=== PATIENT | female | born 1975 | race Caucasian/White ===

== ENCOUNTER → 2018-07-04 | Outpatient (CLI) | payer MEDICAID ==
--- NOTE | 2018-07-04 12:42 | US ---
EXAM DESCRIPTION: 3D Diagnostic, Bilateral (accession [id number]), Breast,Bilateral (accession [id number]): Ultrasound CLINICAL HISTORY: 42 yearsFemaleABN SCREEN, LUMPS COMPARISON: None. TECHNIQUE: Transcutaneous scanning of the bilateral breasts utilizing andersen-scale and Doppler modes. Scanning performed by the machine feeder floorperson and Dr. Turner. Bilateral CC, MLO, and LM projection full-field images, digital mammographic tomosynthesis technique. Bilateral 2-D digital full-field MLO images. CAD not available. FINDINGS: The breast parenchymal density pattern is: Heterogeneously dense breast tissue, which may obscure small masses. No skin thickening or nipple retraction bilateral scattered and focal regions of fibroglandular tissues. Partially circumscribed mass density at the 11:30 clock position of the middle third of the right breast approximately 6 cm from the nipple. Architectural distortion at the 12:00 position 8 to 9 cm from the nipple. Mass density versus focal asymmetry at the 11:30 clock position of the left breast posterior third occipital 18 cm from the nipple. No suspicious microcalcifications bilaterally. Ultrasound: Scanning the right breast, 11:00-1:00 position, 10 cm from the nipple. Mostly fibroglandular elements with minimal fatty echotexture. Circumscribed oval-shaped hypoechoic mass near the skin surface not vascular. Wider than tall with mixed posterior shadowing and posterior acoustic enhancement. Central echogenicity suggestive of a lymph node. At the 11:00 position, 7 cm from the lymph node is an elongated hypoechoic mass with circumscribed and angular margins and part of the margins are ill-defined. Mixed regions of echogenicity within the mass and a peripheral slightly hypoechoic capsule. No significant vascularity. Wider than tall orientation and posterior posterior shadowing. Dimensions are 3.3 x 1.8 cm, similar to the mammographic measurements. No associated large calcifications, parenchymal edema or cysts. No overlying skin changes. Scanning of the left breast 10 to 12:00 position, 10 cm from the nipple. Mostly fibroglandular elements with minimal fatty replacement. Anechoic oval-shaped mass with circumscribed thin margins, wider than tall orientation and posterior acoustic enhancement. Dimensions are 6.4 x 5.4 mm consistent with a cyst. No dominant solid mass. No parenchymal edema or large calcifications. No overlying skin changes. No abnormal vascularity. IMPRESSION: Abnormal ultrasound and mammographic findings in a 3.3 cm mass in the middle third of the upper right breast. ASSESSMENT: BI-RADS CATEGORY 4: SUSPICIOUS. SUB-CATEGORY 4A - LOW SUSPICION FOR MALIGNANCY. FOLLOW-UP: Surgical consultation and tissue diagnosis should be considered. The FINDINGS and FOLLOW-UP plan were reviewed in person with the patient following the examination. Written communication explaining the IMPRESSION and FOLLOW-UP will be mailed to the patient and referring care provider. CRITICAL COMMUNICATION: The critical value was discussed directly by phone with Dr. Micha Eng's biomedical electronics technician, Ms. Erin Zapata M.A., at approximately 1020 hours, on July 04, 2018. Electronically signed by: Donald Turner MD 07/04/2018 12:39 PM CDT
== END ==
LOC: MAMMO 09:00
PROVIDERS: ATTEND General Practice
DX: R92.8 Other abnormal and inconclusive findings on diagnostic imaging of breast (principal)
CPT/HCPCS: 76641; 77066; G0279

== ENCOUNTER → 2018-07-29 | Outpatient (CLI) | payer MEDICAID ==
--- NOTE | 2018-07-29 09:14 | OP ---
DATE OF PROCEDURE: 07/29/18 PREOPERATIVE DIAGNOSIS: 1. Abnormal right mammogram. POSTOPERATIVE DIAGNOSIS: 1. Abnormal right mammogram. PROCEDURE: 1. Sonographically guided needle core biopsy, right breast mass. SURGEON: Moiz Keen MD. BRAKE COUPLER DINKEY: None. ANESTHESIA: Local infiltration of 1% lidocaine. INDICATION: The patient is a 42-year-old female who found what she felt to be a discrete mass in her right breast. Workup revealed a solid lesion with shadowing. She was brought to the Ultrasound Suite today for sonographically guided needle core biopsy after the risks, benefits and alternatives to the procedure were discussed and accepted. FINDINGS: Multiple good cores were taken with ultrasound documentation of the biopsy within the mass. Pathology is pending. PROCEDURE: The patient was brought to the Radiology Suite and placed with the right shoulder and back under a wedge. The right breast was examined with the ultrasound probe. The lesion was identified. The breast medial to the ultrasound probe was prepped with Betadine and draped. Local infiltration of anesthesia was obtained with 1% lidocaine. The tissue between the lesion and the skin was infiltrated with local anesthesia. When this was done, a stab wound was then made with a 15 blade and the biopsy needle was directed and cores were taken of the mass under direct sonographic guidance. Hemostasis was obtained with pressure. A single 4-0 Nylon suture was placed in the skin. Sterile pressure dressing was applied. The patient tolerated the procedure well. Estimated blood loss was less than 5 mL. The specimens were sent for pathological evaluation. The patient was discharged home in stable condition. #[id number] MTDD
--- NOTE | 2018-07-29 14:18 | US ---
EXAM DESCRIPTION: Biopsy/Needle Guidance: Ultrasound. CLINICAL HISTORY: 42 years Female ABNORMAL MAMMOGRAM RIGHT COMPARISON: Diagnostic ultrasound of the bilateral breast on 07/04/2018 TECHNIQUE: The procedure was performed by Dr. Keen. Repeat ultrasound localized hypoechoic right breast mass at the 11:00 position of the right breast 7 cm from the nipple. Sterile preparation. Sterile ultrasound guidance during needle passes. FINDINGS: The mixed echogenic mass is again identified. Multiple images demonstrate the echogenic needle within the substance of the mass. No complications were demonstrated. IMPRESSION: Successful, ultrasound-guided needle core biopsy of right breast mass. Adequate core samples were obtained. Pathology examination at remote facility, results pending. Electronically signed by: Donald Turner MD 07/29/2018 2:15 PM CDT
== END ==
LOC: US 09:15
PROVIDERS: ATTEND Surgery
DX: R92.8 Other abnormal and inconclusive findings on diagnostic imaging of breast (principal); N63.11 Unspecified lump in the right breast, upper outer quadrant

== ENCOUNTER → 2019-10-01 | Outpatient (CLI) | payer OTHER ==
--- NOTE | 2019-10-02 10:38 | RAD ---
EXAM DESCRIPTION: Hip,Right 2 Views CLINICAL HISTORY: ARTHRITIS OF HIP COMPARISON: None Available. TECHNIQUE: AP/frog leg lateral FINDINGS: Two views right hip demonstrate normal bony mineralization and a normal appearance of the hip joint. No significant degenerative change or joint space narrowing or marginal osteophytes noted. Within the anterior aspect of the femoral head at the head neck junction is a subtle lucent structure with a thin rim of sclerosis that is relatively benign in appearance. Etiology of this abnormality is uncertain. Cortical destructive changes or typical changes of osteonecrosis are not apparent. A small probable benign lesion at the anterior head neck junction approximately 1 cm in size in the right hip suspected. If the patient remains symptomatic MRI of the hip recommended without and with enhancement. If the patient's symptoms resolve consider 6-9 month follow-up plain film examination for stability. Also noted is mild sclerosis and hypertrophic lipping involving the inferior right SI joint. An element of sacroiliitis should be considered. IMPRESSION: 1. Essentially normal right hip except for an approximate 1 cm oval lucent lesion in the anterior head and neck junction region with a thin sclerotic margin. Benign cyst or a small benign solid lesion thought most likely. If the patient remains symptomatic in the right hip, MR examination without and with contrast recommended. Otherwise follow-up plain film examination in 6-9 months. 2. Mildly hypertrophic and sclerotic inferior right SI joint consistent with sacroiliitis. Electronically signed by: Thom Gar MD 10/02/2019 10:37 AM CDT
== END ==
LOC: RAD 17:56
PROVIDERS: ATTEND Nurse Practitioner Family
DX: M89.9 Disorder of bone, unspecified (principal); M53.3 Sacrococcygeal disorders, not elsewhere classified

== ENCOUNTER → 2019-12-09 | Outpatient (CLI) | payer OTHER ==
--- NOTE | 2019-12-09 15:12 | CT ---
EXAM DESCRIPTION: Chest w/o Contrast : Computed Tomography. CLINICAL HISTORY: 43 years Female LUNG NODULE COMPARISON: CT scan of abdomen and pelvis on the same visit TECHNIQUE: Spiral-axial scans at 5 x 5 mm intervals through the lungs and thorax without IV contrast. 2.5 x 5 mm lung algorithm axial reconstructions. Coronal and sagittal 2.0 Mm reconstructions. No adverse reactions. Total Exam DLP: 528 mGy-cm. This exam was performed according to our departmental dose-optimization program which includes automated exposure control, adjustment of the mA and/or kV according to patient size and/or use of iterative reconstruction technique; to reduce radiation dose to as low as reasonably achievable (ALARA). Nodule measurements under 10 mm are given as mean value of 3 axes diameters. FINDINGS: Lungs and large airways: 12.5 mm solid nodule with circumscribed and spiculated margins in the subpleural lateral aspect of the superior segment of the left upper lobe approximately 2 cm from the lateral pleura, and 1.5 cm from the lateral left major fissure which is anterior. Small extension to the pleura; no definite pleural thickening or mass.. A small vessel from the hilum appears to communicate with, or about the mass. Remaining parenchymal is normal in the left lower lobe and in the bilateral upper lobes and right lower lobe. Also lingula and right middle lobe. Pleural spaces: No acute process in the bilateral pleura. Mediastinum and Omayra: Evaluation limited due to lack of IV contrast small lymph nodes. No dominant soft tissue masses. Great vessels and Heart: Evaluation limited due to lack of IV contrast. Unremarkable. Soft tissues of neck base, axillae, and chest wall: Evaluation limited due to lack of IV contrast. Nodule in mid right breast stable on prior mammograms and benign on biopsy 2019. Upper abdomen: Please refer to images and report on CT abdomen and pelvis on this visit. Osseous structures: Minimal spondylosis thoracic spine. No lytic or blastic lesions. IMPRESSION: 1. 12.5 mm solid nodule subpleural superior anterior aspect of the superior segment left lower lobe. Partially circumscribed and partially spiculated margins with no calcifications. No associated pleural thickening with small parenchymal extension to the pleura. Differential includes scarring from prior infection or trauma, primary malignant or benign neoplasm, or metastatic lesion. [facility] Best Practice guidelines based upon 2017 Fleischner Society recommendations. See followin Fleischner Society Recommendations for Single Solid Lung Nodule Follow-Up based on size (average of long- and short-axis diameters) >8 mm Low-Risk Patient: Consider CT, PET/CT or tissue sampling at 3 months >8 mm High-Risk Patient: Same as for low-risk patient . Alternatively, tissue sampling can be performed more urgently under imaging guidance. 2. Please refer to CT abdomen and pelvis images and report on this visit. Electronically signed by: Donald Turner MD 12/09/2019 3:10 PM CDT
--- NOTE | 2019-12-09 15:48 | CT ---
EXAM DESCRIPTION: Abdomen/Pelvis w/Contrast: Computed Tomography. CLINICAL HISTORY: 43 years Female ABD PAIN COMPARISON: CT scan of chest without IV contrast on this visit. TECHNIQUE: Spiral-axial scans at 5 x 5 mm intervals through the abdomen and pelvis, after nonionic IV contrast without oral contrast. Coronal and sagittal 2.0 mm reconstructions. No delayed scans. No adverse reactions. Total Exam DLP: 930 mGy-cm. This exam was performed according to our departmental dose-optimization program which includes automated exposure control, adjustment of the mA and/or kV according to patient size and/or use of iterative reconstruction technique; to reduce radiation dose to as low as reasonably achievable (ALARA). FINDINGS: Lung bases and pleura: Please refer to chest CT scan images and report on this visit. Liver, Stomach, Spleen, Adrenal Glands: Possible small hiatal hernia. Solid organs are negative. Pancreas, Gallbladder, Ducts: Distal common bile duct dilated. Gallbladder and pancreas unremarkable. Kidneys and Ureters: Negative. Mesentery: No free air or free fluid. No fatty stranding. Aorta: Unremarkable. Small Bowel: Negative. Terminal Ileum/Cecum: Normal caliber including the appendix. No inflammatory changes. Colon: Diverticula and fecal matter in the sigmoid colon with no complications. Pelvic Organs: 3.6 cm cystic mass left ovary/adnexa. No abnormal enhancement or calcifications. Right ovary not well seen. Uterus normal size and position. No fluid in the cul-de-sac. Spine and Bony Pelvis: Minimal spondylosis of the thoracic spine. Mild levoscoliosis lumbar spine. Abdominal Wall/Back Soft Tissues: Negative. IMPRESSION: 1. 3.6 cm cystic mass left adnexa and ovary. No abnormal enhancement or calcifications. No fluid in the adnexa or cul-de-sac. [facility] Best Practice guidelines: 3.6 cm benign appearing ovarian cyst. No follow-up imaging is recommended. Reference: J Am Qian Radiol 2013;10:675-681 2. Diverticulosis of the sigmoid colon and distal descending colon without complications. Possible small hiatal hernia stomach. Electronically signed by: Donald Turner MD 12/09/2019 3:46 PM CDT
== END ==
LOC: CT 08:41
PROVIDERS: ATTEND Internal Medicine
DX: Z01.812 Encounter for preprocedural laboratory examination (principal); K57.30 Diverticulosis of large intestine without perforation or abscess without bleeding; N83.202 Unspecified ovarian cyst, left side; K22.9 Disease of esophagus, unspecified; R91.1 Solitary pulmonary nodule